=== PATIENT | female | born 2000 | race Hispanic/Latino ===

== ENCOUNTER → 2023-07-07 08:27 | Outpatient (REF) | payer OTHER, SELFPAY ==
[2023-07-07 09:18] LABS: % Basophils 0.2 % (0-2); % Eosinophils 1.7 % (0-6); % Immature Granulocytes 0.2 % (0-0.5); % Lymphocytes 37.8 % (20.5-51.1); % Monocytes 5.9 % (1.7-9.3); % Neutrophils 54.2 % (42.2-75.2); Absolute Eosinophils 0.1 10^3/uL (0-0.7); Absolute Monocytes 0.5 10^3/uL (0.1-0.6); Absolute Neutrophils 4.3 10^3/uL (1.4-6.5); Hematocrit 36.1 % (37.0-47.0); Hemoglobin 12.1 g/dL (12.0-16.0); Mean Corp Hgb Conc. 33.5 g/dL (33.0-37.0); Mean Corpuscular Hgb 27.2 pg (27.0-31.0); Mean Corpuscular Volume 81.1 fL (81.0-99.0); Mean Platelet Volume 11.2 fL (7.4-10.4); Nucleated Red Blood Cells % 0 %; Platelet Count 212 10^3/uL (130-400); Red Blood Cell Count 4.45 10^6/uL (4.20-5.40); Red Cell Dist. Width 12.7 % (11.5-14.5)
[2023-07-07 09:40] LABS: Urine Albumin Negative (Neg - Trace); Urine Bilirubin Negative (Negative); Urine Character Clear (Clear); Urine Color Yellow; Urine Glucose Negative (Negative); Urine Ketone Negative (Negative); Urine Leukocyte Negative (Negative); Urine Nitrite Negative (Negative); Urine Occult Blood Negative (Negative); Urine Urobilinogen Negative (Neg - 1+)
[2023-07-07 09:56] LABS: ALT (SGPT) 12 U/L (0-35); AST (SGOT) 20 U/L (14-36); Albumin 4.4 g/dl (3.5-5.0); Alkaline Phosphatase 96 U/L (38-126); Blood Urea Nitrogen 13 mg/dl (7-17); Carbon Dioxide 24 mmol/L (22-30); Chloride 106 mmol/L (98-107); Glucose 102 mg/dl (70-99); Sodium 139 mmol/L (135-145); Total Bilirubin 0.2 mg/dl (0.2-1.3); Total Protein 7.2 g/dl (6.3-8.2); eGFR > 60.00
[2023-07-07 10:11] LABS: Vitamin D, 25-OH*** 43.9 ng/mL (30-80)
[2023-07-07 10:25] LABS: TSH Reflex To Free T4 1.47 uIU/ml (0.47-4.68)
[2023-07-07 11:01] LABS: Folate 7.2 ng/ml (2.76-20); Vitamin B12 645 pg/ml (239-931)
[2023-07-09 02:25] LABS: Ceruloplasmin 27 mg/dL (16-45)
[2023-07-09 08:11] LABS: Copper, Serum 123.4 ug/dL (80.0-155.0); Zinc 57.8 ug/dL (60.0-120.0)
[2023-07-10 01:37] LABS: Histamine, Whole Blood 534 nmol/L (180-1800)
== END ==
LOC: REG 08:27
PROVIDERS: ATTENDING PHYSICIAN Family Medicine
DX: Z00.00 Encounter for general adult medical examination without abnormal findings (principal); F32.9 Major depressive disorder, single episode, unspecified; F43.10 Post-traumatic stress disorder, unspecified; Z87.59 Personal history of other complications of pregnancy, childbirth and the puerperium; Z86.59 Personal history of other mental and behavioral disorders
CPT/HCPCS: 36415; 80053; 81003; 82306; 82390; 82525; 82607; 82746; 83088; 84443; 84630; 85025; 86140

== ENCOUNTER → 2023-09-15 09:41 | Outpatient (REF) | payer OTHER, SELFPAY ==
[2023-09-17 21:20] LABS: Ceruloplasmin 24 mg/dL (16-45)
[2023-09-18 03:07] LABS: Copper, Serum 106.9 ug/dL (80.0-155.0)
[2023-09-18 03:09] LABS: Zinc 82.9 ug/dL (60.0-120.0)
== END ==
LOC: CLINIC 09:41
PROVIDERS: ATTENDING PHYSICIAN Family Medicine
DX: E60 Dietary zinc deficiency (principal); F32.9 Major depressive disorder, single episode, unspecified
CPT/HCPCS: 82390; 82525; 83088; 84630

== ENCOUNTER 2023-10-17 14:15 | Emergency (ER) | payer OTHER, SELFPAY ==
[2023-10-17 14:21] VITALS: BP 111/71
--- NOTE | 2023-10-17 15:25 | ED.GENMED ---
History of Present Illness
General
Chief Complaint: Eye Problems
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
Time Seen by Provider: 10/17/23 15:07
History of Present Illness
History of Present Illness:
[place] Language Line [id number], Rashi, used for interpretation
23-year-old female with no significant past medical history presents emergency department for evaluation after she excellently poked herself in the right eye with a set of tweezers while she was putting on fake eyelashes. Since that time patient
has had foreign body sensation, pain and her right eye open. Patient also notes some increased tearing to the right eye. Denies any use of contact lenses or glasses. No other injury sustained. No other concerns at this time.
Past History
Past History
ED Past Medical History: None
ED Past Surgical History:
Social History
Tobacco: Non-smoker
Alcohol: None
Drug: None
Personal:
Living: with family
Employment: Employed
Review of Systems
Review of Systems
All Other Systems: ROS reviewed and negative except as documented in HPI and ROS
Phy Exam
Physical Exam
Physical Exam:
GENERAL: Alert , in no apparent distress but does appear uncomfortable
EYE: conjunctiva mildly injected, pupils 3 mm bilateral, no periorbital ecchymosis/edema/erythema
Fluorescein stain: Approximate 2 mm uptake along the 10:00 to 8 o'clock position. No FB visualized
Visual Acuity: Unable to assess 2/2 pain
Head: Normocephalic atraumatic
NECK: Supple,
ENT: mmm.
LUNGS: no acute respiratory distress
NEUROLOGICAL: Alert and oriented
SKIN: Warm and dry, skin intact.
MUSCULOSKELETAL: well perfused.
PSYCH: Normal and appropriate interaction.
Scores
Heart Failure Risk
Heart Failure Risk Score: Not Applicable
Heart Score for Chest Pain Patients
STEMI patient?: Not applicable
Withdrawal Assessment of Alcohol
Withdrawal Assessment Completed?: Not applicable
Course
Orders/Labs/Results
Orders:
Orders
10/17/23 15:30
Fluorescein Sodium [Ful-Angie] 1 mg .ROUTE .STK-MED ONE
Tetracaine HCl [Tetracaine 0.5% Ophthalmic Solution] 1 drop .ROUTE .STK-MED ONE
Vital Signs
Initial and Last Documented VS:
Initial Vital Signs
Temp Pulse Resp BP Pulse Ox
98.6 F 80 18 111/71 100
10/17/23 14:21 10/17/23 14:21 10/17/23 14:21 10/17/23 14:21 10/17/23 14:21
Last Documented Vital Signs
Temp Pulse Resp BP Pulse Ox
98.6 F 80 18 111/71 100
10/17/23 14:21 10/17/23 14:21 10/17/23 14:21 10/17/23 14:21 10/17/23 14:21
MDM/Problems Addressed
Differential Diagnosis Includes:
corneal abrasion, foreign body, no concern for acute infectious etiology
MDM/Problems Addressed:
23-year-old female presenting to the emergency department for evaluation after accidentally poking herself in the right eye with set of tweezers while placing fake eyelashes on. Since that time she has had a foreign body sensation. Fluorescein
stain performed in the ER shows a fairly large corneal abrasion on the right side of the cornea. Will prescribe erythromycin ointment. Advised NSAIDs/Tylenol as needed for pain. Advised on return precautions to the ER and can also follow-up with
primary care provider.
*Pulse Oximetry
Patient hypoxic: no
*Critical Care Note
Total Time (30-74mins, 75-104mins- exclusive of procedures): Not Applicable
ED Attending Note
-
Portions of this chart may have been created with voice recognition software.� Occasional wrong word or��sound alike� substitutions may have occurred due to the inherent limitations of voice recognition software.
Discharge Plan
Departure
Patient Disposition: Home (Routine Discharge)
Date of Disposition: 10/17/23
Time of Disposition: 15:26
Patient with high blood pressure during this ER visit?: No
Discharge Problem:
Injury of conjunctiva and corneal abrasion of right eye w/o FB
Instructions: Corneal Abrasion (DC)
Prescriptions:
New
erythromycin 5 mg/gram (0.5 %) ointment
0.5 inch ophthalmic (eye) BID Qty: 3.5 0RF
Referrals:
[facility] [Outside]
Stand Alone Forms: Return to Work
Discharge Date and Time
Print Language: SUDANESE
[2023-10-17 15:41] VITALS: BP 102/69
== END 2023-10-17 15:44 | disposition home or self-care (01) ==
LOC: EMR 14:15
PROVIDERS: EMERGENCY PHYSICIAN Emergency Medicine
DX: S05.01XA Injury of conjunctiva and corneal abrasion without foreign body, right eye, initial encounter (principal); X58.XXXA Exposure to other specified factors, initial encounter
CPT/HCPCS: 99282

== ENCOUNTER → 2023-12-29 08:22 | Outpatient (REF) | payer OTHER, SELFPAY ==
[2023-12-31 08:40] LABS: Quantiferon Mitogen minus NIL 9.94 IU/mL; Quantiferon NIL 0.06 IU/mL; Quantiferon TB Gold Plus Negative (Negative)
== END ==
LOC: CLINIC 08:22
PROVIDERS: ATTENDING PHYSICIAN Nurse Practitioner Adult Health
DX: Z11.1 Encounter for screening for respiratory tuberculosis (principal)
CPT/HCPCS: 36415; 86480

== ENCOUNTER → 2024-03-01 09:13 | Outpatient (REF) | payer OTHER, SELFPAY ==
[2024-03-01 11:03] LABS: Mean Corp Hgb Conc. 33.3 g/dL (33.0-37.0); Mean Corpuscular Hgb 27.2 pg (27.0-31.0); Mean Corpuscular Volume 81.6 fL (81.0-99.0); Mean Platelet Volume 12.5 fL (7.4-10.4); Platelet Count 169 10^3/uL (130-400); Red Blood Cell Count 4.41 10^6/uL (4.20-5.40); Red Cell Dist. Width 13.3 % (11.5-14.5); White Blood Cell Count 3.6 10^3/uL (4.8-10.8)
[2024-03-01 11:47] LABS: % Basophils 0.3 % (0-2); % Eosinophils 3.7 % (0-6); % Lymphocytes 54.9 % (20.5-51.1); % Monocytes 11.3 % (1.7-9.3); % Neutrophils 29.8 % (42.2-75.2); Absolute Eosinophils 0.1 10^3/uL (0-0.7); Absolute Monocytes 0.4 10^3/uL (0.1-0.6); Absolute Neutrophils 1.1 10^3/uL (1.4-6.5)
[2024-03-01 11:48] LABS: Nucleated Red Blood Cells % 0 %
[2024-03-02 11:14] LABS: Ceruloplasmin 25 mg/dL (16-45)
[2024-03-02 22:34] LABS: Copper, Serum 114.6 ug/dL (80.0-155.0); Zinc 67.7 ug/dL (60.0-120.0)
== END ==
LOC: CLINIC 09:13
PROVIDERS: ATTENDING PHYSICIAN Family Medicine
DX: E60 Dietary zinc deficiency (principal)
CPT/HCPCS: 36415; 82390; 82525; 84630; 85025

== ENCOUNTER → 2024-05-26 15:02 | Outpatient (REF) | payer OTHER, SELFPAY ==
[2024-05-26 16:14] LABS: ALT (SGPT) 13 U/L (0-35); AST (SGOT) 20 U/L (14-36); Albumin 4.4 g/dl (3.5-5.0); Alkaline Phosphatase 68 U/L (38-126); Blood Urea Nitrogen 12 mg/dl (7-17); Calcium 9.6 mg/dl (8.4-10.2); Carbon Dioxide 30 mmol/L (22-30); Chloride 104 mmol/L (98-107); Glucose 103 mg/dl (70-99); Sodium 144 mmol/L (135-145); Total Bilirubin 0.4 mg/dl (0.2-1.3); Total Protein 7.3 g/dl (6.3-8.2); eGFR > 60.00
[2024-05-27 09:13] LABS: Glycohemoglobin (HgbA1c) 5.5 % (4.0-5.6)
== END ==
LOC: CLINIC 15:02
PROVIDERS: ATTENDING PHYSICIAN Physician Assistant Medical
DX: B37.9 Candidiasis, unspecified (principal)
CPT/HCPCS: 36415; 80053; 83036